=== PATIENT | female | born 1955 | race Caucasian/White ===

== ENCOUNTER 2017-10-30 17:41 | Emergency (ER) | payer OTHER ==
[~2017-10-30] VITALS: Ht 177.8 cm; Wt 118.8 kg
[~2017-10-30 17:41] MED LIST: AUGMENTIN875 MG PO; DAILY VITE1 EAC1 PO; DEPAKOTE250 MG PO; DEPAKOTE500 MG PO; DIVALPROEX SOD250 M1 PO; ENDOCET 5-3251 EACH PO; FLUOXETINE HCL20 MG PO; MOTRIN800 MG PO; OxyCODONE PO; PROZAC20 MG PO; RISPERDAL1 MG PO; RISPERDAL2 M1 PO; RISPERDAL4 MG PO; RISPERIDONE4 MG PO; TUMS500 MG PO
[2017-10-30] MEDS ORDERED: AUGMENTIN875 MG PO (18:07)
[2017-10-30] MEDS ORDERED: BACTRIM,SEPT1 TABLET PO (18:46)
[2017-10-30] MEDS ORDERED: CLEOCIN300 MG PO (18:46)
[2017-10-30 18:56] VITALS: BP 133/76
== END 2017-10-30 18:58 | disposition home or self-care (01) ==
LOC: EME 17:41
PROC: 3E0234Z Introduction of Serum, Toxoid and Vaccine into Muscle, Percutaneous Approach (ICD-10-PCS; principal; 2017-10-30)
DX: S61.451A Open bite of right hand, initial encounter (principal); W54.0XXA Bitten by dog, initial encounter; Z23 Encounter for immunization; Z88.0 Allergy status to penicillin
CPT/HCPCS: 99281; 99283